=== PATIENT | female | born 1940 | race Caucasian/White ===

== ENCOUNTER 2020-04-23 07:30 | Day surgery (SDC) | payer MEDICARE, BC ==
[2020-04-23] VITALS (11 sets, daily range): BP systolic 139–194; BP diastolic 66–94
[~2020-04-23] VITALS: Ht 165.1 cm; Wt 86.9 kg
[2020-04-23] MEDS ORDERED: diphenhydrAMINE 25mg capsule PO PRN (08:05)
[2020-04-23] MEDS ORDERED: ASPI-10 PO (08:11)
[2020-04-23] MEDS ORDERED: BIMA2.5D EACHEYE (08:11)
[2020-04-23] MEDS ORDERED: VIT1CAPS46 PO (08:11)
[2020-04-23] MEDS ORDERED: MULT-227 PO (08:11)
[2020-04-23] MEDS ORDERED: combivent respimat INH (08:11)
[2020-04-23] MEDS ORDERED: NETA2.5D EACHEYE (08:11)
[2020-04-23] MEDS ORDERED: HYDR12.55 PO (08:11)
[2020-04-23] MEDS ORDERED: ATOR40TA PO (08:12)
[2020-04-23] MEDS ORDERED: UMEC1DIS INH (08:12)
[2020-04-23] MEDS ORDERED: bisoprolol PO (08:12)
[2020-04-23 08:46] LABS: BASOPHILS # (AUTO) 0.1 X10'3 (0-0.2); BASOPHILS % (AUTO) 1.2 % (0-1); EOSINOPHILS # (AUTO) 0.5 X10'3 (0-0.9); EOSINOPHILS % (AUTO) 7.5 % (0-6); HEMATOCRIT 40.3 % (35.0-45.0); HEMOGLOBIN 13.1 g/dl (12.0-16.0); LYMPHOCYTES # (AUTO) 1.6 X10'3 (1.1-4.8); MEAN CORPUSCULAR HEMOGLOBIN 27.5 PG (27.0-31.0); MEAN CORPUSCULAR HGB CONC 32.5 g/dL (33.0-36.5); MEAN CORPUSCULAR VOLUME 84.7 FL (78-98); MEAN PLATELET VOLUME 8.3 FL (7.4-10.4); MONOCYTES # (AUTO) 0.4 X10'3 (0-0.9); MONOCYTES % (AUTO) 6.9 % (2-12); NEUTROPHILS # (AUTO) 3.7 X10'3 (1.8-7.7); NEUTROPHILS % (AUTO) 58.4 % (42-75); PLATELET COUNT 256 X10'3 (140-440); RED BLOOD COUNT 4.75 X10'6 (4.20-5.60); WHITE BLOOD COUNT 6.3 X10'3 (4.5-11.0)
[2020-04-23 08:56] LABS: ALBUMIN 4.2 G/DL (3.4-5.0); ANION GAP 9 (8-16); BLOOD UREA NITROGEN 18 MG/DL (7-18); BUN/CREATININE RATIO 21.2 (6.6-38.0); CALCIUM 9.9 MG/DL (8.5-10.1); CHLORIDE 104 MMOL/L (99-107); CREATININE 0.85 MG/DL (0.40-0.90); GLUCOSE 95 MG/DL (70-104); MAGNESIUM 2.1 MG/DL (1.5-2.4); POTASSIUM 3.9 MMOL/L (3.5-5.1); SODIUM 142 MMOL/L (135-145); TOTAL CARBON DIOXIDE 29.4 MMOL/L (24-32); eGFR 65 ML/MIN
[2020-04-23] MEDS: normal saline 1,000 ML IV SCH ×2 (08:56→14:04)
[2020-04-23] MEDS ORDERED: heparin 1,000unit/ml 10ml vial 10 ML ONE (10:16)
[2020-04-23] MEDS ORDERED: midazolam 1 mg/ML 2ml injection ONE ×2 (10:16→11:06)
[2020-04-23] MEDS ORDERED: LIDOcaine 1% (10mg/ml)w/preservative injection 20ml MDV ONE (10:16)
[2020-04-23] MEDS ORDERED: iohexol 350 MG/1 ML 200ml bottle ONE (10:16)
[2020-04-23] MEDS ORDERED: fentaNYL/PF 50MCG/1 ML 2ML syringe ONE (10:16)
[2020-04-23] MEDS ORDERED: clopidogrel 300mg tablet ONE (12:02)
[2020-04-23] MEDS ORDERED: cloNIDine 0.1 mg tablet PO ONE (12:35)
[2020-04-23] MEDS ORDERED: bisoprolol 5mg tablet PO ONE (12:35)
[2020-04-23] MEDS ORDERED: atenolol 50mg tablet PO ONE (12:50)
[2020-04-23] MEDS ORDERED: ketorolac tromethamine 15mg/ml inj. IV ONE (13:35)
== END 2020-04-23 16:23 | disposition home or self-care (01) ==
LOC: SSTAY O 07:30
PROVIDERS: ATTEND Internal Medicine Cardiovascular Disease
DX: I70.213 Atherosclerosis of native arteries of extremities with intermittent claudication, bilateral legs (principal); Z79.899 Other long term (current) drug therapy; I25.10 Atherosclerotic heart disease of native coronary artery without angina pectoris; Z95.1 Presence of aortocoronary bypass graft; J44.9 Chronic obstructive pulmonary disease, unspecified; M79.662 Pain in left lower leg; M79.661 Pain in right lower leg
CPT/HCPCS: 36415; 37226; 75710; 80048; 83735; 85025; 85610; 93005; 99152; 99153; C1725; C1760; C1769; C1876; C1894; J1644; J1885; J2001; J2250; J3010; J7030; Q0163; Q9967; A4620; A6258; C2623

== ENCOUNTER 2020-06-14 07:25 | Day surgery (SDC) | payer MEDICARE, BC ==
[~2020-06-14] VITALS: Ht 165.1 cm; Wt 86.8 kg
[2020-06-14] VITALS (9 sets, daily range): BP systolic 124–162; BP diastolic 43–62
[~2020-06-14 07:25] MED LIST: ASPI-10 PO; ATOR40TA PO; BIMA2.5D EACHEYE; HYDR12.55 PO; MULT-227 PO; NETA2.5D EACHEYE; UMEC1DIS INH; VIT1CAPS46 PO; bisoprolol PO; combivent respimat INH
[2020-06-14] MEDS ORDERED: normal saline 1,000 ML IV SCH (07:55)
[2020-06-14] MEDS ORDERED: diphenhydrAMINE 25mg capsule PO PRN (07:55)
[2020-06-14] MEDS ORDERED: CLOP75TA33 PO (08:13)
[2020-06-14] MEDS ORDERED: RIVA2.5T PO (08:13)
[2020-06-14] MEDS ORDERED: CLIN300C56 PO (08:44)
[2020-06-14 08:48] LABS: BASOPHILS # (AUTO) 0.1 X10'3 (0-0.2); BASOPHILS % (AUTO) 1.4 % (0-1); EOSINOPHILS # (AUTO) 0.4 X10'3 (0-0.9); EOSINOPHILS % (AUTO) 7.9 % (0-6); HEMATOCRIT 36.9 % (35.0-45.0); HEMOGLOBIN 12.1 g/dl (12.0-16.0); LYMPHOCYTES # (AUTO) 1.4 X10'3 (1.1-4.8); LYMPHOCYTES % (AUTO) 26.4 % (21-51); MEAN CORPUSCULAR HEMOGLOBIN 27.8 PG (27.0-31.0); MEAN CORPUSCULAR HGB CONC 32.7 g/dL (33.0-36.5); MEAN CORPUSCULAR VOLUME 85.1 FL (78-98); MEAN PLATELET VOLUME 8.3 FL (7.4-10.4); MONOCYTES # (AUTO) 0.5 X10'3 (0-0.9); MONOCYTES % (AUTO) 9.3 % (2-12); NEUTROPHILS # (AUTO) 2.9 X10'3 (1.8-7.7); PLATELET COUNT 247 X10'3 (140-440); RED BLOOD COUNT 4.34 X10'6 (4.20-5.60); RED CELL DISTRIBUTION WIDTH 15.2 % (11.5-14.5); WHITE BLOOD COUNT 5.2 X10'3 (4.5-11.0)
[2020-06-14] MEDS ORDERED: LIDOcaine 1% (10mg/ml)w/preservative injection 20ml MDV ONE (08:54)
[2020-06-14 08:56] LABS: ALBUMIN 3.7 G/DL (3.4-5.0); ANION GAP 4 (8-16); BLOOD UREA NITROGEN 23 MG/DL (7-18); BUN/CREATININE RATIO 30.7 (6.6-38.0); CALCIUM 9.5 MG/DL (8.5-10.1); CHLORIDE 107 MMOL/L (99-107); CREATININE 0.75 MG/DL (0.40-0.90); GLUCOSE 103 MG/DL (70-104); SODIUM 141 MMOL/L (135-145); TOTAL CARBON DIOXIDE 30.5 MMOL/L (24-32); eGFR 75 ML/MIN
[2020-06-14] MEDS ORDERED: fentaNYL/PF 50MCG/1 ML 2ML syringe ONE ×2 (09:01→10:24)
[2020-06-14] MEDS ORDERED: midazolam 1 mg/ML 2ml injection ONE (09:01)
[2020-06-14] MEDS ORDERED: iohexol 350MG/ML 100ml bottle IV ONE ×2 (09:01→10:19)
[2020-06-14] MEDS ORDERED: heparin 1,000unit/ml 10ml vial 10 ML ONE (09:27)
[2020-06-14] MEDS ORDERED: clopidogrel 300mg tablet ONE (11:16)
[2020-06-14] MEDS ORDERED: normal saline 1000ml 1,000 ML IV SCH (11:40)
[2020-06-14] MEDS ORDERED: ondansetron/PF 4mg/2ml inj IV PRN (11:40)
--- NOTE | 2020-06-14 11:40 | NUR ---
Pt came back to room. IV infusing at new rate. VS stable as charted. Site stable, small amount of drainage on Rt groin site. Will continue to monitor.
[2020-06-14] MEDS ORDERED: OXAZEpam 15mg capsule PO PRN (11:45)
[2020-06-14] MEDS ORDERED: proCHLORperazine 10 MG/2 ml inj IV PRN (11:45)
[2020-06-14] MEDS ORDERED: HYDROcodone/acetaminophen 10/325mg tab PO PRN (11:45)
[2020-06-14] MEDS ORDERED: HYDROcodone/acetaminophen 5mg/325mg tablet PO PRN (11:45)
--- NOTE | 2020-06-14 14:02 | NUR ---
Problems reprioritized. Patient report given, questions answered & plan of care reviewed with Adri HILL.
[2020-06-14] MEDS ORDERED: furosemide 20 MG/2 ML vial IV ONE (14:30)
== END 2020-06-14 15:35 | disposition home or self-care (01) ==
LOC: SSTAY O 07:25
PROVIDERS: ATTEND Internal Medicine Cardiovascular Disease
DX: I70.212 Atherosclerosis of native arteries of extremities with intermittent claudication, left leg (principal); M79.605 Pain in left leg; J44.9 Chronic obstructive pulmonary disease, unspecified; I10 Essential (primary) hypertension; I25.10 Atherosclerotic heart disease of native coronary artery without angina pectoris; E78.00 Pure hypercholesterolemia, unspecified; Z79.899 Other long term (current) drug therapy; Z95.1 Presence of aortocoronary bypass graft; Z95.820 Peripheral vascular angioplasty status with implants and grafts; Z87.891 Personal history of nicotine dependence; Z72.89 Other problems related to lifestyle; Z79.82 Long term (current) use of aspirin
CPT/HCPCS: 36415; 37227; 75710; 80048; 83735; 85025; 85610; 93005; 99152; 99153; C1714; C1725; C1760; C1769; C1876; C1894; J1644; J1940; J2001; J2250; J3010; J7030; Q0163; Q9967; 36247; A4620; A6258; C2623

== ENCOUNTER 2020-06-26 17:28 | Emergency (ER) | payer MEDICARE, BC ==
[~2020-06-26] VITALS: Ht 165.1 cm; Wt 87.3 kg
[~2020-06-26 17:28] MED LIST changes: +CLIN300C56 PO; +CLOP75TA33 PO; -NETA2.5D EACHEYE; +RIVA2.5T PO
[2020-06-26 20:00] LABS: BASOPHILS % (AUTO) 0.8 % (0-1); EOSINOPHILS # (AUTO) 0.2 X10'3 (0-0.9); EOSINOPHILS % (AUTO) 2.9 % (0-6); HEMOGLOBIN 12.4 g/dl (12.0-16.0); LYMPHOCYTES # (AUTO) 1.4 X10'3 (1.1-4.8); LYMPHOCYTES % (AUTO) 22.3 % (21-51); MEAN CORPUSCULAR HEMOGLOBIN 27.7 PG (27.0-31.0); MEAN CORPUSCULAR HGB CONC 32.6 g/dL (33.0-36.5); MEAN PLATELET VOLUME 7.8 FL (7.4-10.4); MONOCYTES # (AUTO) 0.6 X10'3 (0-0.9); MONOCYTES % (AUTO) 9.2 % (2-12); NEUTROPHILS # (AUTO) 4.1 X10'3 (1.8-7.7); NEUTROPHILS % (AUTO) 64.8 % (42-75); PLATELET COUNT 296 X10'3 (140-440); RED BLOOD COUNT 4.47 X10'6 (4.20-5.60); RED CELL DISTRIBUTION WIDTH 15.2 % (11.5-14.5); WHITE BLOOD COUNT 6.3 X10'3 (4.5-11.0)
[2020-06-26 20:17] LABS: D-DIMER 1.55 MG/L FEU (0-0.50); PARTIAL THROMBOPLASTIN TIME 27 SECONDS (22-32)
[2020-06-26 20:21] LABS: ALANINE AMINOTRANSFERASE 35 U/L (12-78); ALBUMIN 3.8 G/DL (3.4-5.0); ALKALINE PHOSPHATASE 138 IU/L (46-116); ANION GAP 9 (8-16); ASPARTATE AMINO TRANSFERASE 33 U/L (10-37); BILIRUBIN,TOTAL 0.5 MG/DL (0.1-1.0); BLOOD UREA NITROGEN 15 MG/DL (7-18); BUN/CREATININE RATIO 16.5 (6.6-38.0); CALCIUM 9.6 MG/DL (8.5-10.1); CHLORIDE 103 MMOL/L (99-107); CREATININE 0.91 MG/DL (0.40-0.90); GLUCOSE 107 MG/DL (70-104); SODIUM 141 MMOL/L (135-145); TOTAL CARBON DIOXIDE 28.6 MMOL/L (24-32); TOTAL PROTEIN 7.6 G/DL (6.4-8.2); eGFR 60 ML/MIN
[2020-06-26] MEDS ORDERED: CEPH250T PO (22:59)
[2020-06-26 23:09] VITALS: BP 167/73
== END 2020-06-26 23:11 | disposition home or self-care (01) ==
LOC: ER 17:29
DX: L08.9 Local infection of the skin and subcutaneous tissue, unspecified (principal); B34.9 Viral infection, unspecified; I10 Essential (primary) hypertension; Z95.5 Presence of coronary angioplasty implant and graft; Z88.8 Allergy status to other drugs, medicaments and biological substances; Z79.82 Long term (current) use of aspirin; Z79.2 Long term (current) use of antibiotics; Z79.899 Other long term (current) drug therapy
CPT/HCPCS: 36415; 80053; 85025; 85379; 85610; 85730; 93926; 93971; 99285

== ENCOUNTER 2021-05-02 17:08 | Emergency (ER) | payer MEDICARE, BC ==
[~2021-05-02] VITALS: Ht 165.1 cm; Wt 86.4 kg
--- NOTE | 2021-05-02 18:34 | NUR ---
BEDSIDE REPORT TO LIZ TERRY
--- NOTE | 2021-05-02 18:50 | NUR ---
PT SMILING ON THE GURNEY. TALKING TO ER PHYSICIAN.
--- NOTE | 2021-05-02 19:33 | NUR ---
SPOKE TO DR PLATT. NO NEW ORDERS. REQUESTS ROAD-TESTING PT. PT AMBULATED WITH ERECT AND COORDINATED FOR OVER 20 FEET WITH NO SYMPTOMS. PT HAS NO NEED FOR A WALKER OR CANE.
[2021-05-02 20:16] VITALS: BP 126/68
== END 2021-05-02 20:19 | disposition home or self-care (01) ==
LOC: ER 17:09
DX: I83.892 Varicose veins of left lower extremity with other complications (principal); R42 Dizziness and giddiness; R11.2 Nausea with vomiting, unspecified; I49.8 Other specified cardiac arrhythmias; R51.9 Headache, unspecified; Z87.01 Personal history of pneumonia (recurrent); I10 Essential (primary) hypertension; Z95.5 Presence of coronary angioplasty implant and graft; Z88.8 Allergy status to other drugs, medicaments and biological substances; Z79.82 Long term (current) use of aspirin; Z79.2 Long term (current) use of antibiotics; Z79.899 Other long term (current) drug therapy
CPT/HCPCS: 93005; 99283

== ENCOUNTER 2024-05-26 08:06 | Day surgery (SDC) | payer MEDICARE, BC ==
[2024-05-14 14:16] LABS: BASOPHILS # (AUTO) 0.1 X10'3 (0-0.2); BASOPHILS % (AUTO) 1.2 % (0-1); EOSINOPHILS # (AUTO) 0.4 X10'3 (0-0.9); EOSINOPHILS % (AUTO) 6.2 % (0-6); HEMATOCRIT 38.7 % (35.0-45.0); HEMOGLOBIN 12.7 g/dl (12.0-16.0); LYMPHOCYTES # (AUTO) 1.7 X10'3 (1.1-4.8); LYMPHOCYTES % (AUTO) 26.5 % (21-51); MEAN CORPUSCULAR HEMOGLOBIN 27.7 PG (27.0-31.0); MEAN CORPUSCULAR HGB CONC 32.9 g/dL (33.0-36.5); MEAN CORPUSCULAR VOLUME 84.1 FL (78-98); MEAN PLATELET VOLUME 8.2 FL (7.4-10.4); MONOCYTES # (AUTO) 0.6 X10'3 (0-0.9); MONOCYTES % (AUTO) 8.5 % (2-12); NEUTROPHILS # (AUTO) 3.8 X10'3 (1.8-7.7); NEUTROPHILS % (AUTO) 57.6 % (42-75); PLATELET COUNT 268 X10'3 (140-440); RED CELL DISTRIBUTION WIDTH 14.6 % (11.5-14.5); WHITE BLOOD COUNT 6.6 X10'3 (4.5-11.0)
[2024-05-14 14:42] LABS: ALANINE AMINOTRANSFERASE 38 U/L (12-78); ALBUMIN 3.7 G/DL (3.4-5.0); ALBUMIN/GLOBULIN RATIO 1.1 (1.1-1.5); ALKALINE PHOSPHATASE 131 IU/L (46-116); ANION GAP 5 (8-16); ASPARTATE AMINO TRANSFERASE 30 U/L (10-37); BILIRUBIN,TOTAL 0.4 MG/DL (0.1-1.0); BLOOD UREA NITROGEN 18 MG/DL (7-18); BUN/CREATININE RATIO 22.2 (10.0-20.0); CALCIUM 9.2 MG/DL (8.5-10.1); CHLORIDE 105 MMOL/L (99-107); CREATININE 0.81 MG/DL (0.40-0.90); GLUCOSE 99 MG/DL (70-104); POTASSIUM 3.3 MMOL/L (3.5-5.1); SODIUM 143 MMOL/L (135-145); TOTAL CARBON DIOXIDE 32.7 MMOL/L (24-32); eGFR 68 ML/MIN
[2024-05-25] MEDS: DOCUMENT DATE & TIME OF BETA-BLOCKER PO ONE (05:30)
[~2024-05-26] VITALS: Ht 165.1 cm; Wt 87.8 kg
[2024-05-26] MEDS: ceFAZolin 2gm in dextrose, iso 50 ML IV ONE (05:30)
[~2024-05-26 08:06] MED LIST changes: -ASPI-10 PO; -BIMA2.5D EACHEYE; +BISO5TAB PO; +BUDE10.32 PO; -CLIN300C56 PO; +FURO20TA4 PO; +IPRA4AER INH; +LATA2.5D14 EACHEYE; -UMEC1DIS INH; +albuterol 2.5 MG/3 ML nebule NEB ONE; -bisoprolol PO; -combivent respimat INH
[2024-05-26 08:22] VITALS: BP 142/73; PULSE 64; RESP 16; TEMP 98; O2SAT 97
[2024-05-26] MEDS ORDERED: LIDOcaine 1% 30ml preserv. free vial ONE (08:34)
[2024-05-26] MEDS ORDERED: ringers solution, lacted 1,000 ML IV SCH (08:40)
[2024-05-26] MEDS ORDERED: labetalol 20mg/4ml (5mg/ml) syringe IV PRN (08:40)
[2024-05-26] MEDS ORDERED: morphine 4 MG/ML inj SYRINge IV PRN (08:40)
[2024-05-26] MEDS ORDERED: enalaprilat 1.25mg/ml 2ml vial IV PRN (08:40)
[2024-05-26] MEDS ORDERED: proCHLORperazine 10 MG/2 ml inj IV PRN (08:40)
[2024-05-26] MEDS ORDERED: meperidine/PF 25mg/ml syringe IV PRN ×3 (08:40)
[2024-05-26] MEDS ORDERED: ondansetron/PF 4mg/2ml inj IV PRN (08:40)
[2024-05-26] MEDS ORDERED: morphine 2 MG/ML inj. syringe IV PRN (08:40)
[2024-05-26] MEDS: famotidine 20mg tablet PO ONE (09:59)
[2024-05-26] MEDS: ringers solution, lacted 1,000 ML IV SCH (10:02)
[2024-05-26] MEDS ORDERED: BUPIVAcaine/PF 2.5mg/ml (0.25%) 10ml vial ONE (10:36)
[2024-05-26] MEDS ORDERED: LIDOcaine 2% (20mg/ml) 5ml vial ONE (10:36)
[2024-05-26] MEDS ORDERED: fentaNYL/PF 50MCG/1 ML 2ML syringe ONE (10:59)
[2024-05-26] MEDS ORDERED: MIDAZolam 1 MG/ML 5ML VIAL ONE (11:33)
[2024-05-26] MEDS ORDERED: acetaminophen 1,000mg/100ml IV 100 ML IV ONE (11:34)
[2024-05-26 11:39] VITALS: BP 143/65; PULSE 54; RESP 16; O2SAT 98
[2024-05-26 11:50] VITALS: BP 134/60; PULSE 56; RESP 10; O2SAT 100
[2024-05-26 12:00] VITALS: BP 140/61; PULSE 56; RESP 12; O2SAT 100
[2024-05-26 12:10] VITALS: BP 145/63; PULSE 54; RESP 11; O2SAT 97
[2024-05-26 12:20] VITALS: BP 152/66; PULSE 54; RESP 11; O2SAT 100
== END 2024-05-26 12:49 | disposition home or self-care (01) ==
LOC: PAS 08:06
PROVIDERS: ATTEND Orthopaedic Surgery Hand Surgery
DX: G56.02 Carpal tunnel syndrome, left upper limb (principal); G56.22 Lesion of ulnar nerve, left upper limb; M47.816 Spondylosis without myelopathy or radiculopathy, lumbar region; Z88.2 Allergy status to sulfonamides; Z79.01 Long term (current) use of anticoagulants; I25.2 Old myocardial infarction; Z88.8 Allergy status to other drugs, medicaments and biological substances; E78.00 Pure hypercholesterolemia, unspecified; J44.9 Chronic obstructive pulmonary disease, unspecified; I10 Essential (primary) hypertension; I73.9 Peripheral vascular disease, unspecified; Z98.890 Other specified postprocedural states; Z79.899 Other long term (current) drug therapy; Z87.891 Personal history of nicotine dependence; Z72.89 Other problems related to lifestyle; Z95.5 Presence of coronary angioplasty implant and graft
CPT/HCPCS: 36415; 64718; 64721; 80053; 82948; 85025; 93005; A4215; A6449; J0131; J0690; J2003; J2250; J3010; J3490; J7030; J7120; Z7506; Z7512; Z7610